=== PATIENT | female | born 1995 | race Caucasian/White ===

== ENCOUNTER 2023-12-23 16:19 | Outpatient (CLI) | payer OTHER ==
--- NOTE | 2023-12-24 10:38 | XRAY Report ---
PROCEDURE: Ankle 3+V LT INDICATIONS: LEFT ANKLE PAIN TECHNIQUE: 3 views of the ankle were acquired. COMPARISON: None. FINDINGS: Bones: No fractures or dislocations. Ankle mortise appears intact. Soft tissues: No radiographically evident soft tissue swelling. Achilles tendon appears unremarkable. IMPRESSION: No acute bony abnormality. Reviewed by: Rikki Mann MD on 12/24/2023 10:36 AM PDT Approved by: Rkiki Mann MD on 12/24/2023 10:36 AM PDT Station ID: [id number]
== END 2023-12-23 16:20 | disposition home or self-care (01) ==
LOC: DI 16:19
PROVIDERS: ATTEND Student in an Organized Health Care Education/Training Program
DX: M25.572 Pain in left ankle and joints of left foot (principal)